=== PATIENT | male | born 1960 | race Two or more races ===

== ENCOUNTER 2024-10-07 20:53 | Inpatient (IN) | payer MEDICARE, OTHER ==
--- NOTE | 2024-10-07 21:13 | ED ---
Male Urogenital HPI - General Source: patient Mode of arrival: ambulatory Limitations: no limitations <Jewell Thakur - Last Filed: 10/07/24 21:12> - General Source: patient, RN notes reviewed, old records reviewed Mode of arrival: ambulatory Limitations: no limitations - History of Present Illness MD Complaint: dysuria, other (hematuria) -: week(s) Location: right flank, left flank, abdomen Severity: moderate Severity scale (1-10): 7 Quality: sharp Consistency: intermittent Improves with: none Worsens with: none Reports: urinary retention, blood in urine <Lance Stephens - Last Filed: 10/14/24 15:35> - General Chief complaint: Urogenital Stated complaint: Blood in Urine Time Seen by Provider: 10/07/24 21:13 - History of Present Illness Initial comments: 64-year-old male presenting chief complaint of blood in his urine. This has been ongoing for the last 10 days. He is having no pain. Has not previously seen urology. (Jewell Thakur) This is a 64-year-old male who is been dealing with blood in his urine for grea ter than a week. Does have outpatient evaluation with urology, patient does have history of high blood pressure not on blood pressure medication as he does not currently follow with primary care. Patient is having severe abdominal pain flank pain kidney pain (Lance Stephens) - Related Data Previous Rx's Medication Instructions Recorded Acetaminophen Tab [Tylenol] 650 mg PO Q6HR PRN tab 10/12/24 Ferrous Sulfate [Feosol] 325 mg PO BID #60 tab 10/12/24 predniSONE [Deltasone] 40 mg PO DAILY #6 tab 10/12/24 Allergies Allergy/AdvReac Type Severity Reaction Status Date / Time No Known Allergies Allergy Verified 10/08/24 08:08 Review of Systems ROS Other: All systems not noted in ROS Statement are negative. <Jewell Thakur - Last Filed: 10/07/24 21:12> ROS Other: All systems not noted in ROS Statement are negative. <Lance Stephens - Last Filed: 10/14/24 15:35> ROS Statement: Those systems with pertinent positive or pertinent negative responses have been documented in the HPI. Past Medical History Past Medical History: Hypertension History of Any Multi-Drug Resistant Organisms: None Reported Past Surgical History: Unable to Obtain Past Psychological History: No Psychological Hx Reported Smoking Status: Never smoker Past Alcohol Use History: Occasional Past Drug Use History: None Reported <Jewell Thakur - Last Filed: 10/07/24 21:12> - Past Family History Father Family Medical History: Cancer Additional Family Medical History / Comment(s): at 71 from mesothelioma Mother Family Medical History: Dementia Additional Family Medical History / Comment(s): around 84-86 years old <Lance Stephens - Last Filed: 10/14/24 15:35> General Exam Limitations: no limitations <Jewell Thakur - Last Filed: 10/07/24 21:12> General appearance: alert, in no apparent distress Head exam: Present: atraumatic, normocephalic, normal inspection Eye exam: Present: normal appearance, PERRL, EOMI. Absent: scleral icterus, conjunctival injection, periorbital swelling ENT exam: Present: normal exam, mucous membranes moist Neck exam: Present: normal inspection. Absent: tenderness, meningismus, lymphadenopathy Respiratory exam: Present: normal lung sounds bilaterally. Absent: respiratory distress, wheezes, rales, rhonchi, stridor Cardiovascular Exam: Present: regular rate, normal rhythm, normal heart sounds. Absent: systolic murmur, diastolic murmur, rubs, gallop, clicks GI/Abdominal exam: Present: soft, normal bowel sounds. Absent: distended, tenderness, guarding, rebound, rigid Extremities exam: Present: normal inspection, full ROM, normal capillary refill. Absent: tenderness, pedal edema, joint swelling, calf tenderness Back exam: Present: normal inspection Neurological exam: Present: alert, oriented X3, CN II-XII intact Psychiatric exam: Present: normal affect, normal mood Skin exam: Present: warm, dry, intact, normal color. Absent: rash <Lance Stephens - Last Filed: 10/14/24 15:35> - General Exam Comments Initial Comments: Visual Physical Exam Vital signs reviewed General: Well-appearing, nontoxic, no acute distress. Head: Normocephalic, atraumatic Eyes: PERRLA, EOMI ENT: Airway patent Chest: Nonlabored breathing Skin: No visual rash, normal skin tone Neuro: Alert and oriented 3 Musculoskeletal: No gross abnormalities (Jewell Thakur) Course <Lance Stephens B - Last Filed: 10/14/24 15:35> Vital Signs 10/07/24 10/07/24 10/08/24 20:54 22:58 01:42 Temperature 97.5 F L 98.6 F Pulse Rate 96 78 79 Respiratory 16 18 18 Rate Blood Pressure 179/100 179/98 179/101 O2 Sat by Pulse 97 97 98 Oximetry 10/08/24 10/08/24 10/08/24 02:45 03:01 04:22 Temperature Pulse Rate 72 76 67 Respiratory 18 18 18 Rate Blood Pressure 159/101 148/89 111/66 O2 Sat by Pulse 97 100 100 Oximetry 10/08/24 10/08/24 10/08/24 05:42 06:18 07:21 Temperature Pulse Rate 65 67 68 Respiratory 16 18 20 Rate Blood Pressure 116/74 153/84 132/81 O2 Sat by Pulse 100 100 99 Oximetry 10/08/24 10/08/24 10/08/24 09:41 10:48 12:00 Temperature Pulse Rate 82 86 85 Respiratory 20 16 20 Rate Blood Pressure 118/74 134/83 130/68 O2 Sat by Pulse 96 99 98 Oximetry 10/08/24 10/08/24 10/08/24 13:49 14:56 17:23 Temperature 97.9 F Pulse Rate 85 75 80 Respiratory 20 19 19 Rate Blood Pressure 130/86 135/86 128/84 O2 Sat by Pulse 98 99 100 Oximetry 10/08/24 10/09/24 10/09/24 22:42 02:00 02:19 Temperature 98.4 F Pulse Rate 84 75 75 Respiratory 20 17 17 Rate Blood Pressure 156/86 119/69 119/69 O2 Sat by Pulse 100 99 99 Oximetry 10/09/24 10/09/24 10/09/24 03:25 06:13 07:20 Temperature 99.0 F Pulse Rate 86 68 78 Respiratory 18 15 16 Rate Blood Pressure 129/81 128/75 118/70 O2 Sat by Pulse 99 99 100 Oximetry 10/09/24 10/09/24 10/09/24 09:16 12:39 14:25 Temperature Pulse Rate 85 76 84 Respiratory 16 18 18 Rate Blood Pressure 129/74 144/91 156/85 O2 Sat by Pulse 100 96 99 Oximetry 10/09/24 15:24 Temperature 98 F Pulse Rate 78 Respiratory 18 Rate Blood Pressure 135/78 O2 Sat by Pulse 98 Oximetry - Reevaluation(s) Reevaluation #1: 10/07/24 22:47 Medical records reviewed (Lance Stephens) Reevaluation #2: 10/07/24 22:47 Patient is having bloody urine with difficulty in urination here in the ER 10/08/24 Nolasco catheter placed here in the ER (Lance Stephens) Reevaluation #3: 10/08/24 01:17 Patient informed of results questions answered (Lance Stephens) Reevaluation #4: Was pt. sent in by a medical professional or institution ([facility] [place], [employer], urgent care, hospital, or long-term...) When possible be specific @ -no Did you speak to anyone other than the patient for history (EMS, parent, family, police, friend...)? What history was obtained from this source @ -no Did you review nursing and triage notes (agree or disagree)? Why? @ -agree Are old charts reviewed (outside hosp., previous admission, EMS record, old EKG, old radiological studies, urgent care reports/EKG's, long-term records)? Report findings @ -yes Differential Diagnosis (chest pain, altered mental status, abdominal pain women, abdominal pain men, vaginal bleeding, weakness, fever, dyspnea, syncope, headache, dizziness, GI bleed, back pain, seizure, CVA, palpatations, mental health, musculoskeletal)? @ -prior EKG interpreted by me (3pts min.). @ -yes X-rays interpreted by me (1pt min.). @ -no CT interpreted by me (1pt min.). @ -Yes positive for significant bladder distention and hydronephrosis U/S interpreted by me (1pt. min.). @ -Yes positive for significant bladder distention and hydronephrosis What testing was considered but not performed or refused? (CT, X-rays, U/S, labs)? Why? @ -none What meds were considered but not given or refused? Why? @ -none Did you discuss the management of the patient with other professionals (professionals i.e. [facility] [place], MA[employer], lab, RT, psych nurse, geriatric social work professor, yarn packer, teacher, seismology technical officer, lead case manager)? Give summary @ -no Was smoking cessation discussed for >3mins.? @ -no Was critical care preformed (if so, how long)? @ -yes31 Were there social determinants of health that impacted care today? How? (Homelessness, low income, unemployed, alcoholism, drug addiction, transportation, low edu. Level, literacy, decrease access to med. care, fci, re hab)? @ -none Was there de-escalation of care discussed even if they declined (Discuss DNR or withdrawal of care, Hospice)? DNR status @ -no What co-morbidities impacted this encounter? (DM, HTN, Smoking, COPD, CAD, Cancer, CVA, ARF, Chemo, Hep., AIDS, mental health diagnosis, sleep apnea, morbid obesity)? @ -none Was patient admitted / discharged? Hospital course, mention meds given and route, prescriptions, significant lab abnormalities, going to OR and other pertinent info. @ - 64 male to ER for evaluation of hematuria with obstructive uropathy, acute kidney injury significant renal failure secondary to obstruction, patient will admit for urology and nephrology to see Admitted Undiagnosed new problem with uncertain prognosis? @ -no Drug Therapy requiring intensive monitoring for toxicity (Heparin, Nitro, Insulin, Cardizem)? @ -no Were any procedures done? @ -no Diagnosis/symptom? @ -Hematuria, obstructive uropathy, acute renal failure Acute, or Chronic, or Acute on Chronic? @ -Acute Uncomplicated (without systemic symptoms) or Complicated (systemic symptoms)? @ -Complicated Side effects of treatment? @ -no Exacerbation, Progression, or Severe Exacerbation? @ -exacerbation Poses a threat to life or bodily function? How? (Chest pain, [place], [place], pneumonia, PE, COPD, DKA, ARF, appy, cholecystitis, CVA, Diverticulitis, Homicidal, Suicidal, threat to staff... and all critical care pts) @ -yes significant abnormal lab testing (Lance Stephens) Reevaluation #5: Differential Abdominal Pain Men: Appendicitis, cholecystitis, diverticulosis, ischemic bowel, pancreatitis, hepatitis, UTI, gastroenteritis, AAA, incarcerated hernia, bowel obstruction, constipation, inflammatory bowel, hepatitis, peptic ulcer disease, splenic inf arction, perforated viscus, testicular torsion, this is not meant to be an all- inclusive list (Lance Stephens) - Consultations Consultation #1: Spoke with nicolette who agrees to admit this patient (Lance Stephens) Medical Decision Making <Jewell Thakur - Last Filed: 10/07/24 21:12> - Lab Data Result diagrams: 10/12/24 05:17 10/12/24 05:17 - Radiology Data Radiology results: report reviewed (CT abd pelvis positive for bladder outlet obstruction sound also concerning for bladder outlet obstruction hydronephrosis), image reviewed <Lance Stephens - Last Filed: 10/14/24 15:35> - Medical Decision Making I performed the quick note portion of this visit, electronically signed Jewell Thakur PA-C (Jewell Thakur) 64 male to ER for evaluation of hematuria with obstructive uropathy, acute ki dney injury significant renal failure secondary to obstruction, patient will admit for urology and nephrology to see (Lance Stephens) - Lab Data Lab Results 10/07/24 10/07/24 10/07/24 Range/Units 21:07 21:24 21:24 WBC 9.2 (3.8-10.6) k/uL RBC 3.20 L (4.30-5.90) m/uL Hgb 10.3 L (13.0-17.5) gm/dL Hct 29.9 L (39.0-53.0) % MCV 93.6 (80.0-100.0) fL MCH 32.2 (25.0-35.0) pg MCHC 34.4 (31.0-37.0) g/dL RDW 13.0 (11.5-15.5) % Plt Count 322 (150-450) k/uL MPV 8.5 Neutrophils % 83 % Lymphocytes % 7 % Monocytes % 8 % Eosinophils % 0 % Basophils % 1 % Neutrophils # 7.6 (1.3-7.7) k/uL Lymphocytes # 0.6 L (1.0-4.8) k/uL Monocytes # 0.7 (0-1.0) k/uL Eosinophils # 0.0 (0-0.7) k/uL Basophils # 0.1 (0-0.2) k/uL Sodium 124 L (137-145) mmol/L Potassium 5.3 H (3.5-5.1) mmol/L Chloride 94 L (98-107) mmol/L Carbon Dioxide 10 L (22-30) mmol/L Anion Gap 20 mmol/L BUN 101 H* (9-20) mg/dL Creatinine 11.08 H* (0.66-1.25) mg/dL Est GFR (CKD-EPI)AfAm 5 (>60 ml/min/1.73 sqM) Est GFR (CKD-EPI)NonAf 4 (>60 ml/min/1.73 sqM) Glucose 130 H (74-99) mg/dL Calcium 9.5 (8.4-10.2) mg/dL Total Bilirubin 0.5 (0.2-1.3) mg/dL AST 19 (17-59) U/L ALT 14 (4-49) U/L Alkaline Phosphatase 72 (38-126) U/L Total Protein 7.5 (6.3-8.2) g/dL Albumin 4.5 (3.5-5.0) g/dL Urine Color Red Urine Appearance Turbid (Clear) Urine pH 7.0 (5.0-8.0) Ur Specific Duncan 1.017 (1.001-1.035) Urine Protein 2+ H (Negative) Urine Glucose (UA) Negative (Negative) Urine Ketones Negative (Negative) Urine Blood Large H (Negative) Urine Nitrite Negative (Negative) Urine Bilirubin 1+ H (Negative) Urine Urobilinogen 3.0 (<2.0) mg/dL Ur Leukocyte Esterase Trace H (Negative) Urine RBC >182 H (0-5) /hpf Urine WBC 98 H (0-5) /hpf Critical Care Time Critical Care Time: Yes Total Critical Care Time: 31 <Lance Stephens - Last Filed: 10/14/24 15:35> Disposition <Jewell Thakur - Last Filed: 10/07/24 21:12> Is patient prescribed a controlled substance at d/c from ED?: No Time of Disposition: 01:00 <Lance Stephens - Last Filed: 10/14/24 15:35> Clinical Impression: Abdominal pain, Hematuria, OLIVER (acute kidney injury), Renal failure, Hypertension, Urinary retention, Unspecified hydronephrosis Disposition: ADMITTED IP TO THIS HOSP Condition: Serious
[2024-10-07 21:38] LABS: Basophils # (A) 0.1 k/uL (0-0.2); Basophils % (A) 1 %; Eosinophils % (A) 0 %; HCT 29.9 % (39.0-53.0); HGB 10.3 gm/dL (13.0-17.5); Lymphocytes # (A) 0.6 k/uL (1.0-4.8); Lymphocytes % (A) 7 %; MCH 32.2 pg (25.0-35.0); MCHC 34.4 g/dL (31.0-37.0); MCV 93.6 fL (80.0-100.0); Mean Platelet Volume 8.5; Monocytes # (A) 0.7 k/uL (0-1.0); Monocytes % (A) 8 %; Neutrophils # (A) 7.6 k/uL (1.3-7.7); Neutrophils % (A) 83 %; Platelet Count 322 k/uL (150-450); WBC 9.2 k/uL (3.8-10.6)
[2024-10-07 21:45] LABS: Appearance,Urine Turbid (Clear); Bilirubin,Urine 1+ (Negative); Blood,Urine Large (Negative); Glucose,Urine (UA) Negative (Negative); Ketones,Urine Negative (Negative); Leukocyte Esterase,Urine Trace (Negative); Nitrite,Urine Negative (Negative); Protein,Urine 2+ (Negative); RBC,Urine >182 /hpf (0-5); WBC,Urine 98 /hpf (0-5)
[2024-10-07 21:51] LABS: Color,Urine Red; Specific Gravity,Urine 1.017 (1.001-1.035)
[2024-10-07 22:10] LABS: ALT 14 U/L (4-49); AST 19 U/L (17-59); African American GFR (CKD) 5 (>60 ml/min/1.73 sqM); Albumin 4.5 g/dL (3.5-5.0); Alkaline Phosphatase 72 U/L (38-126); Anion Gap 20 mmol/L; Calcium 9.5 mg/dL (8.4-10.2); Carbon Dioxide 10 mmol/L (22-30); Chloride 94 mmol/L (98-107); Glucose 130 mg/dL (74-99); Non-African American GFR(CKD) 4 (>60 ml/min/1.73 sqM); Potassium 5.3 mmol/L (3.5-5.1); Sodium 124 mmol/L (137-145); Total Bilirubin 0.5 mg/dL (0.2-1.3); Total Protein 7.5 g/dL (6.3-8.2)
[2024-10-07 22:30] LABS: Blood Urea Nitrogen 101 mg/dL (9-20)
--- NOTE | 2024-10-08 00:55 | US ---
EXAMINATION TYPE: US renals and bladder DATE OF EXAM: 10/07/2024 COMPARISON: CT 10/07/24 CLINICAL INDICATION: Male, 64 years old with history of renal failure; labs showing renal failure TECHNIQUE: Grayscale imaging of the bilateral kidneys and urinary bladder: FINDINGS: EXAM MEASUREMENTS: Right Kidney: 13.0 x 6.5 x 11.0 cm Left Kidney: 14.8 x 7.9 x 5.4 cm limited due to severe hydro and rib shadows Right Kidney: enlarged, severe hydro seen Left Kidney: enlarged, severe hydro seen Bladder: floating echogenic particles seen within. There is a 7.9 x 2.4 x 9.7cm echogenic area with i rregular contour seen within the inferior/ left bladder. There is also a separate 5.2 x 3.1 x 3.9cm h eterogeneous area within the left inferior bladder, ? prominent prostate vs other Bilateral Jets seen: not visualized IMPRESSION: Distended urinary bladder with debris/abnormal urinary contour to the inferior bladder similar to CT findings unclear if this is blood products versus underlying mass. Correlate with urinalysis consider further evaluation and cystoscopy. Given enlarged prostate and bilateral hydronephrosis correlate fo r bladder outlet obstruction in the setting of BPH. 10/08/2024 12:52 AM,10/07/2024 11:33 PM,Katelyn Mcclure, renals and bladder,[id number] [facility], , 10/08/2024 12:53 AM
--- NOTE | 2024-10-08 01:06 | CT ---
EXAMINATION TYPE: CT abdomen pelvis wo con DATE OF EXAM: 10/07/2024 11:18 PM COMPARISON: Ultrasound same day CLINICAL INDICATION: Male, 64 years old with history of pain,hematuria; Hematuria x 10 days no chroni c HX TECHNIQUE: Axial CT abdomen pelvis wo con;Sagittal and coronal reformats were created on a separate workstation. Contrast used: mL of , (none if empty) Oral contrast used: without Oral Contrast (none if empty) CT DLP: 861.7 mGycm, Automated exposure control for dose reduction was used. FINDINGS: LOWER CHEST: Unremarkable ABDOMEN LIVER: Unremarkable GALLBLADDER AND BILE DUCTS: Unremarkable. PANCREAS: Unremarkable. SPLEEN: Unremarkable. ADRENAL GLANDS: Unremarkable. KIDNEYS AND URETERS: Bilateral hydronephrosis moderate to severe. Bilateral hydroureter. PELVIS BLADDER: No distended urinary bladder with debris layering in the dependent portion. Bladder measurin g up to 21 x 14 x 15 cm REPRODUCTIVE: Prostate is enlarged in size measuring 6.4 cm in transverse dimension. ABDOMEN & PELVIS STOMACH AND BOWEL: No evidence of bowel obstruction. Appendix is normal. Scattered colonic diverticul a. Moderate amount of stool throughout colon. PERITONEUM/RETROPERITONEUM: No evidence of pneumoperitoneum or free fluid. VASCULATURE: No evidence of aortic aneurysm. MUSCULOSKELETAL: No acute osseous abnormalities LYMPH NODES: No gross evidence for lymphadenopathy. SOFT TISSUE/ABDOMINAL WALL: Fat-containing left inguinal hernia. Fat-containing umbilical hernia. IMPRESSION: Markedly Distended urinary bladder with bilateral hydronephrosis. Debris within the urinary bladder c ould represent blood products given history. Correlate for chronic bladder outlet obstruction seconda ry to a BPH. Nolasco catheter recommended. Further workup to ensure resolution of blood proximal and to exclude masses recommended. [facility], , 10/08/2024 1:04 AM
[2024-10-08] MEDS ORDERED: ONDANSETRON 4 MG/2 ML VIAL IVP PRN (01:13)
[2024-10-08] MEDS ORDERED: NALOXONE 0.4 MG/ML 1 ML VIAL IV PRN (01:13)
[2024-10-08] MEDS: SODIUM CHLORIDE 0.9% 1,000 ML IV STA ×2 (01:24→02:54)
[2024-10-08] MEDS: SODIUM CHLORIDE 0.9% 500 ML 500 ML IV STA (01:26)
[2024-10-08] MEDS: LABETALOL 5 MG/ML VIAL MDV IVP STA (02:11)
[2024-10-08] MEDS: MORPHINE SULFATE 4 MG/ML SYRINGE IVP STA (02:57)
[2024-10-08] MEDS: SODIUM CHLORIDE 0.9% 1,000 ML IV SCH (02:59)
[2024-10-08] MEDS: DEXTROSE 5% IN WATER 1,000 ML with SODIUM BICARB (1 MEQ/ML) 150 ML IV SCH (03:42)
[2024-10-08] MEDS: PANTOPRAZOLE 40 MG/10 ML VIAL IV SCH (07:33)
[2024-10-08 09:17] LABS: Basophils % (A) 0 %; Eosinophils % (A) 1 %; HCT 25.5 % (39.0-53.0); Lymphocytes # (A) 0.4 k/uL (1.0-4.8); Lymphocytes % (A) 7 %; MCH 31.2 pg (25.0-35.0); MCHC 33.6 g/dL (31.0-37.0); Monocytes # (A) 0.4 k/uL (0-1.0); Monocytes % (A) 7 %; Neutrophils # (A) 4.5 k/uL (1.3-7.7); Neutrophils % (A) 85 %; Platelet Count 247 k/uL (150-450); RBC 2.74 m/uL (4.30-5.90); RDW 13.2 % (11.5-15.5); WBC 5.3 k/uL (3.8-10.6)
[2024-10-08 09:26] LABS: HGB 8.6 gm/dL (13.0-17.5)
[2024-10-08 09:36] LABS: African American GFR (CKD) 6 (>60 ml/min/1.73 sqM); Anion Gap 16 mmol/L; Blood Urea Nitrogen 95 mg/dL (9-20); Calcium 8.5 mg/dL (8.4-10.2); Carbon Dioxide 12 mmol/L (22-30); Chloride 100 mmol/L (98-107); Creatine Kinase 151 U/L (55-170); Glucose 186 mg/dL (74-99); Magnesium 2.4 mg/dL (1.6-2.3); Non-African American GFR(CKD) 5 (>60 ml/min/1.73 sqM); Potassium 4.4 mmol/L (3.5-5.1); Sodium 128 mmol/L (137-145)
--- NOTE | 2024-10-08 09:56 | P.GSCN ---
History of Present Illness Consult date: 10/08/24 Reason for Consult: Bilateral hydronephrosis secondary to urinary retention Requesting physician: Devyn Mcmahan History of present illness: The patient is a 64-year-old white male who presents with a 10-day history of gross hematuria. He has also experienced difficulty voiding, though he is a vague historian. CT scan showed bilateral marked hydroureteronephrosis with bladder distention well above the umbilicus. A Nolasco catheter is now in place. He denies any prior history of UTIs or urolithiasis. Review of Systems - Cardiovascular Reports high blood pressure - Genitourinary Reports as per HPI Past Medical History Past Medical History: Hypertension History of Any Multi-Drug Resistant Organisms: None Reported Past Surgical History: Unable to Obtain Past Psychological History: No Psychological Hx Reported Smoking Status: Never smoker Past Alcohol Use History: Occasional Past Drug Use History: None Reported Medications and Allergies Home Medications Medication Instructions Recorded Confirmed Type No Known Home Medications 10/08/24 10/08/24 History Allergies Allergy/AdvReac Type Severity Reaction Status Date / Time No Known Allergies Allergy Verified 10/08/24 08:08 Surgical - Exam Vital Signs Temp Pulse Resp BP Pulse Ox 97.5 F L 96 16 179/100 97 10/07/24 20:54 10/07/24 20:54 10/07/24 20:54 10/07/24 20:54 10/07/24 20:54 - General well developed, well nourished, no distress - Respiratory normal respiratory effort - Abdomen Abdomen: soft, non tender, no guarding, no rigid, no rebound - Genitourinary normal penis with no external lesions, testicles non-tender - Psychiatric oriented to time, oriented to person, oriented to place, speech is normal, memory intact Results - Labs 10/08/24 08:48 10/08/24 08:48 Abnormal Lab Results - Last 24 Hours (Table) 10/07/24 10/07/24 10/07/24 Range/Units 21:07 21:24 21:24 RBC 3.20 L (4.30-5.90) m/uL Hgb 10.3 L (13.0-17.5) gm/dL Hct 29.9 L (39.0-53.0) % Lymphocytes # 0.6 L (1.0-4.8) k/uL Sodium 124 L (137-145) mmol/L Potassium 5.3 H (3.5-5.1) mmol/L Chloride 94 L (98-107) mmol/L Carbon Dioxide 10 L (22-30) mmol/L BUN 101 H* (9-20) mg/dL Creatinine 11.08 H* (0.66-1.25) mg/dL Glucose 130 H (74-99) mg/dL Urine Protein 2+ H (Negative) Urine Blood Large H (Negative) Urine Bilirubin 1+ H (Negative) Ur Leukocyte Esterase Trace H (Negative) Urine RBC >182 H (0-5) /hpf Urine WBC 98 H (0-5) /hpf Diabetes panel 10/07/24 Range/Units 21:24 Sodium 124 L (137-145) mmol/L Potassium 5.3 H (3.5-5.1) mmol/L Chloride 94 L (98-107) mmol/L Carbon Dioxide 10 L (22-30) mmol/L BUN 101 H* (9-20) mg/dL Creatinine 11.08 H* (0.66-1.25) mg/dL Glucose 130 H (74-99) mg/dL Calcium 9.5 (8.4-10.2) mg/dL AST 19 (17-59) U/L ALT 14 (4-49) U/L Alkaline Phosphatase 72 (38-126) U/L Total Protein 7.5 (6.3-8.2) g/dL Albumin 4.5 (3.5-5.0) g/dL Calcium panel 10/07/24 Range/Units 21:24 Calcium 9.5 (8.4-10.2) mg/dL Albumin 4.5 (3.5-5.0) g/dL Pituitary panel 10/07/24 Range/Units 21:24 Sodium 124 L (137-145) mmol/L Potassium 5.3 H (3.5-5.1) mmol/L Chloride 94 L (98-107) mmol/L Carbon Dioxide 10 L (22-30) mmol/L BUN 101 H* (9-20) mg/dL Creatinine 11.08 H* (0.66-1.25) mg/dL Glucose 130 H (74-99) mg/dL Calcium 9.5 (8.4-10.2) mg/dL Adrenal panel 10/07/24 Range/Units 21:24 Sodium 124 L (137-145) mmol/L Potassium 5.3 H (3.5-5.1) mmol/L Chloride 94 L (98-107) mmol/L Carbon Dioxide 10 L (22-30) mmol/L BUN 101 H* (9-20) mg/dL Creatinine 11.08 H* (0.66-1.25) mg/dL Glucose 130 H (74-99) mg/dL Calcium 9.5 (8.4-10.2) mg/dL Total Bilirubin 0.5 (0.2-1.3) mg/dL AST 19 (17-59) U/L ALT 14 (4-49) U/L Alkaline Phosphatase 72 (38-126) U/L Total Protein 7.5 (6.3-8.2) g/dL Albumin 4.5 (3.5-5.0) g/dL - Imaging CT scan - abdomen: report reviewed, image reviewed Assessment and Plan (1) Urinary retention Current Visit: Yes Status: Acute Code(s): R33.9 - RETENTION OF URINE, UNSPECIFIED SNOMED Code(s): 574919385 (2) Unspecified hydronephrosis Current Visit: Yes Status: Acute Code(s): N13.30 - UNSPECIFIED H YDRONEPHROSIS SNOMED Code(s): 95733038 Plan: Continue Nolasco catheter drainage. Irrigate Nolasco as needed. Fluid management is critical, being mindful of the risk of postobstructive diuresis. Given the degree of bladder distention, the patient was advised that the catheter will need to remain in place for several weeks and that he will require urodynamic testing and cystoscopy as an outpatient. Time with Patient: Greater than 30
--- NOTE | 2024-10-08 12:02 | P.HPIM ---
History of Present Illness H&P Date: 10/08/24 History of present illness; 64-year-old man with PMH of hypertension presents to the emergency department after dealing with gross hematuria for 10 days. Additionally, he notes some discomfort and difficulty with voiding. He notes when he first noticed discoloration of his urine he began taking some Ceftin at home, but stopped after a couple of days. He is a vague historian, however endorses history of hypertension for which he used to take losartan, however states he has not taken in "a while". He does not endorse taking any other home medications, or any other past medical history. He states he has never smoked. Does drink regularly, 12 vodka tonics daily per the patient. Labratory review: -WBCs 9.2, hemoglobin 10.3, hematocrit 29.9, platelet 322; sodium 124, potassium 5.3, chloride 94, bicarb 10, BUN 101, creatinine 11.08 -UA: 2+ protein, large amount of blood, 1+ bilirubin, trace leukocyte esterase, > 182 urine RBCs, 98 urine WBCs Imaging: -Renal/bladder ultrasound showed distended urinary bladder with debris/abnormal urinary contour to the inferior bladder -CT abdomen/pelvis shows markedly distended urinary bladder with bilateral hydronephrosis; debris within the urinary bladder which could represent blood products. Vitals: -On arrival: Blood pressure 179/100, heart rate 96, respiratory rate 16, SpO2 97% on room air -Currently: Blood pressure 132/81, heart rate 68, respiratory rate 20, SpO2 99% room air Patient admitted to internal medicine service REVIEW OF SYSTEMS: Pertinent positives and negatives noted in HPI. The rest of the 14-point review of systems is negative. Physical Exam: General: nontoxic, no distress, appears at stated age Derm: warm, dry, intact Head: atraumatic, normocephalic, symmetric Eyes: EOMI, anicteric sclera Mouth: no lip lesion, mucus membranes moist Cardiovascular: S1 S2 reg, no murmur, rubs, or gallops Lungs: CTA bilateral, no rales, no accessory muscle use Abdominal: soft, non-tender to palpataion, no appreciable organomegaly; ventral hernia noted Extremities: no gross muscle atrophy, no edema, no contractures Neuro: Alert, Oriented, CNII-XII grossly intact, gait normal Psych: well appearing, appropriate affect Assessment and plan 59-year-old man with PMH of hypertension presents to the emergency department after dealing with gross hematuria for 10 days, some discomfort and difficulty with voiding and worsening kidney function. #Acute kidney injury #Gross hematuria #Urinary retention #Hydronephrosis #Hyponatremia, improving #Hyperkalemia, resolved #Anion gap metabolic acidosis -CT abdomen/pelvis showed markedly distended urinary bladder and bilateral hydronephrosis -Nolasco catheter in place -Continue on D5W with sodium bicarb at 100 cc/h -Urology note read and reviewed -Nephrology consult #Normocytic anemia -Hemoglobin 8.6 this morning -Continue monitor CBC -Hemoglobin <7 transfuse GI prophylaxis: DVT prophylaxis: The patient is admitted with an anticipated more than than 2 midnight stay for evaluation of CODE STATUS: Full code Discussed with: Patient Anticipated discharge place: Pending clinical course Dictation was produced using [employer] dictation software. please excuse any grammatical, word or spelling errors. I have seen and evaluated the patient today. Discussed with the resident and agree with the residents finding and plan as documented in the resident's note. Changes highlighted in blue font. Past Medical History Past Medical History: Hypertension History of Any Multi-Drug Resistant Organisms: None Reported Past Surgical History: Unable to Obtain Past Psychological History: No Psychological Hx Reported Smoking Status: Never smoker Past Alcohol Use History: Occasional Past Drug Use History: None Reported Medications and Allergies Home Medications Medication Instructions Recorded Confirmed Type No Known Home Medications 10/08/24 10/08/24 History Allergies Allergy/AdvReac Type Severity Reaction Status Date / Time No Known Allergies Allergy Verified 10/08/24 08:08 Physical Exam Vitals: Vital Signs Temp Pulse Resp BP Pulse Ox 10/08/24 07:21 68 20 132/81 99 10/08/24 06:18 67 18 153/84 100 10/08/24 05:42 65 16 116/74 100 10/08/24 04:22 67 18 111/66 100 10/08/24 03:01 76 18 148/89 100 10/08/24 02:45 72 18 159/101 97 10/08/24 01:42 98.6 F 79 18 179/101 98 10/07/24 22:58 78 18 179/98 97 10/07/24 20:54 97.5 F L 96 16 179/100 97 Intake and Output 10/07/24 10/08/24 10/08/24 22:59 06:59 14:59 Output Total 2980 2500 Balance -2980 -2500 Output: Urine 2980 2500 Uretheral (Nolasco) 2980 Other: Voiding Method Toilet Weight 98.883 kg Results CBC & Chem 7: 10/08/24 08:48 10/08/24 08:48 Labs: Abnormal Lab Results - Last 24 Hours (Table) 10/07/24 10/07/24 10/07/24 Range/Units 21:07 21:24 21:24 RBC 3.20 L (4.30-5.90) m/uL Hgb 10.3 L (13.0-17.5) gm/dL Hct 29.9 L (39.0-53.0) % Lymphocytes # 0.6 L (1.0-4.8) k/uL Sodium 124 L (137-145) mmol/L Potassium 5.3 H (3.5-5.1) mmol/L Chloride 94 L (98-107) mmol/L Carbon Dioxide 10 L (22-30) mmol/L BUN 101 H* (9-20) mg/dL Creatinine 11.08 H* (0.66-1.25) mg/dL Glucose 130 H (74-99) mg/dL Urine Protein 2+ H (Negative) Urine Blood Large H (Negative) Urine Bilirubin 1+ H (Negative) Ur Leukocyte Esterase Trace H (Negative) Urine RBC >182 H (0-5) /hpf Urine WBC 98 H (0-5) /hpf
--- NOTE | 2024-10-08 15:12 | P.NPCON ---
History of Present Illness - Reason for Consult Consult date: 10/08/24 - History of Present Illness Patient is 64-year-old male history of hypertension who presents for blood in urine. Blood began 10 days ago. He had progressive pain while urinating since his symptoms began. He continues to have gross blood in urine with occasional weaker stream which he feels is due to clotting. He denies traumatic injury, history of kidney or bladder dysfunction or history of weak stream, UTI, and kid argelia stones. He denies history of malignancy. He states he uses NSAIDs once for pain 1 week ago. He does endorse taking Ceftin for his suspected UTI. He denies alcohol use, and history of smoking. He states he is eating and drinking well. Denies nausea or vomiting. Patient states that he believes he has had weak kidney function for some time. He states that he has not seen any physician for many years now. Serum creatinine initially elevated at 11, today improved to 10. Previous creatinine 1.9 in September 2021. Maintained on IV fluids Initial sodium 124, improved today to 128. Past Medical History Past Medical History: Hypertension History of Any Multi-Drug Resistant Organisms: None Reported Past Surgical History: Unable to Obtain Past Psychological History: No Psychological Hx Reported Smoking Status: Never smoker Past Alcohol Use History: Occasional Past Drug Use History: None Reported Medications and Allergies Home Medications Medication Instructions Recorded Confirmed Type No Known Home Medications 10/08/24 10/08/24 History Allergies Allergy/AdvReac Type Severity Reaction Status Date / Time No Known Allergies Allergy Verified 10/08/24 08:08 Physical Exam Vitals: Vital Signs Temp Pulse Resp BP Pulse Ox 10/08/24 09:41 82 20 118/74 96 10/08/24 07:21 68 20 132/81 99 10/08/24 06:18 67 18 153/84 100 10/08/24 05:42 65 16 116/74 100 10/08/24 04:22 67 18 111/66 100 10/08/24 03:01 76 18 148/89 100 10/08/24 02:45 72 18 159/101 97 10/08/24 01:42 98.6 F 79 18 179/101 98 10/07/24 22:58 78 18 179/98 97 10/07/24 20:54 97.5 F L 96 16 179/100 97 Intake and Output 10/07/24 10/08/24 10/08/24 22:59 06:59 14:59 Output Total 2980 2500 Balance -2980 -2500 Output: Urine 2980 2500 Uretheral (Nolasco) 2980 Other: Voiding Method Toilet Weight 98.883 kg Patient is awake, comfortable, no acute distress. Obese. Rah red urine in Nolasco bag. 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 Results - Lab Results Most recent lab results Calcium 8.5 mg/dL (8.4-10.2) 10/08/24 08:48 Magnesium 2.4 mg/dL (1.6-2.3) H 10/08/24 08:48 10/08/24 08:48 10/08/24 08:48 Assessment and Plan Assessment: 1. OLIVER due to postrenal obstruction, Renal ultrasound with bilateral hydronephrosis and enlarged prostate. Creatinine on admission 11. Last known creatinine 1.9 in 2021. Baseline unclear. Will continue IV fluids. UA with findings 2+ protein, large blood, RBCs > 182. Nolasco catheter placed. IV fluids. Urology following 2. Hematuria secondary to obstructive uropathy with possible UTI 3. Bilateral hydronephrosis, moderate to severe with markedly distended urinary bladder noted on ultrasound and AP CT 4. Pyuria rule out UTI, urine culture ordered 5. Hyponatremia, hypovolemic, improving with IV fluids 6. Anion gap metabolic acidosis, secondary to kidney injury, maintain on bicarb drip, improving 7. Anemia, rule out iron deficiency, ferritin and iron panel ordered Plan: Continue with bicarb drip Nolasco catheter in place Urine culture pending Avoid nephrotoxic agents Iron profile pending Monitor CMP in a.m. No acute indication for hemodialysis at this time. Thank you for the consultation. We will continue to follow the patient with you during his hospitalization. Patient is seen and examined. Agree with resident's findings, assessment and plan.
[2024-10-08 19:52] LABS: % Iron Saturation 18.06 (15.00-50.00)
[2024-10-09] MEDS: ACETAMINOPHEN TAB 325 MG TAB PO PRN (03:50)
[2024-10-09 07:38] LABS: Basophils % (A) 0 %; Eosinophils # (A) 0.1 k/uL (0-0.7); Eosinophils % (A) 2 %; HCT 23.2 % (39.0-53.0); Lymphocytes # (A) 0.6 k/uL (1.0-4.8); Lymphocytes % (A) 9 %; MCH 31.9 pg (25.0-35.0); MCHC 34.4 g/dL (31.0-37.0); MCV 92.8 fL (80.0-100.0); Mean Platelet Volume 8.9; Monocytes # (A) 0.7 k/uL (0-1.0); Monocytes % (A) 10 %; Neutrophils # (A) 5.5 k/uL (1.3-7.7); Neutrophils % (A) 77 %; Platelet Count 218 k/uL (150-450); RDW 12.7 % (11.5-15.5)
[2024-10-09 07:55] LABS: ALT 10 U/L (4-49); AST 13 U/L (17-59); African American GFR (CKD) 6 (>60 ml/min/1.73 sqM); Albumin 3.1 g/dL (3.5-5.0); Alkaline Phosphatase 43 U/L (38-126); Anion Gap 10 mmol/L; Blood Urea Nitrogen 82 mg/dL (9-20); Calcium 8.5 mg/dL (8.4-10.2); Carbon Dioxide 23 mmol/L (22-30); Chloride 100 mmol/L (98-107); Glucose 128 mg/dL (74-99); Magnesium 2.2 mg/dL (1.6-2.3); Non-African American GFR(CKD) 5 (>60 ml/min/1.73 sqM); Phosphorus 6.5 mg/dL (2.5-4.5); Potassium 4.1 mmol/L (3.5-5.1); Sodium 133 mmol/L (137-145); Total Bilirubin 0.4 mg/dL (0.2-1.3); Total Protein 5.5 g/dL (6.3-8.2)
[2024-10-09] MEDS: SODIUM CHLORIDE 0.9% 1,000 ML IV SCH (09:08)
--- NOTE | 2024-10-09 09:23 | P.PN ---
Subjective Progress Note Date: 10/09/24 Patient seen for follow-up of OLIVER and hematuria. He continues to have hematuria, Nolasco catheter remains in place. Today's creatinine improved to 9.0. Today improved sodium 133. Switch from D5W with sodium bicarb to IV normal saline. Patient is eating and drinking well. Urology is following patient. Objective - Vital Signs Vital signs: Vital Signs Temp 99.0 F 10/09/24 03:25 Pulse 78 10/09/24 07:20 Resp 16 10/09/24 07:20 BP 118/70 10/09/24 07:20 Pulse Ox 100 10/09/24 07:20 FiO2 Intake & Output 10/08/24 10/09/24 10/09/24 18:59 06:59 18:59 Intake Total 480 Output Total 4500 2625 Balance -4500 -2145 Intake: Oral 480 Output: Urine 4500 2625 Other: Voiding Method Indwelling Catheter - Exam Patient is awake, comfortable, no acute distress. Obese. Rah red urine in Nolasco bag. Examination of the heart S1 and S2 Examination of the lungs bilateral breath sounds are heard, no basal crackles Examination of the Abdomen is soft, hernia, nontender Examination of lower extremities shows no edema [employer]ANDSCAPE SPECIALIST exam is grossly intact. - Labs CBC & Chem 7: 10/09/24 07:17 10/09/24 07:17 Labs: Abnormal Lab Results - Last 24 Hours (Table) 10/08/24 10/08/24 10/08/24 Range/Units 08:48 08:48 08:48 RBC 2.74 L (4.30-5.90) m/uL Hgb 8.6 L D (13.0-17.5) gm/dL Hct 25.5 L (39.0-53.0) % Lymphocytes # 0.4 L (1.0-4.8) k/uL Sodium 128 L (137-145) mmol/L Carbon Dioxide 12 L (22-30) mmol/L BUN 95 H (9-20) mg/dL Creatinine 10.10 H* (0.66-1.25) mg/dL Glucose 186 H (74-99) mg/dL Phosphorus (2.5-4.5) mg/dL Magnesium 2.4 H (1.6-2.3) mg/dL Iron 41 L (65-175) UG/DL TIBC 227 L (228-460) UG/DL Transferrin 162.0 L (204.0-354.0) mg/dL Ferritin 335.0 H (22.0-322.0) ng/mL AST (17-59) U/L Total Protein (6.3-8.2) g/dL Albumin (3.5-5.0) g/dL 10/09/24 10/09/24 Range/Units 07:17 07:17 RBC 2.50 L (4.30-5.90) m/uL Hgb 8.0 L (13.0-17.5) gm/dL Hct 23.2 L (39.0-53.0) % Lymphocytes # 0.6 L (1.0-4.8) k/uL Sodium 133 L (137-145) mmol/L Carbon Dioxide (22-30) mmol/L BUN 82 H (9-20) mg/dL Creatinine 9.06 H* (0.66-1.25) mg/dL Glucose 128 H (74-99) mg/dL Phosphorus 6.5 H (2.5-4.5) mg/dL Magnesium (1.6-2.3) mg/dL Iron (65-175) UG/DL TIBC (228-460) UG/DL Transferrin (204.0-354.0) mg/dL Ferritin (22.0-322.0) ng/mL AST 13 L (17-59) U/L Total Protein 5.5 L (6.3-8.2) g/dL Albumin 3.1 L (3.5-5.0) g/dL Assessment and Plan Assessment: 1. OLIVER due to postrenal obstruction, Renal ultrasound with bilateral hydronephrosis and enlarged prostate. Creatinine on admission 11. Today creatinine improved to 9.0, last known creatinine 1.9 in 2021. Baseline unclear. Will continue IV fluids. UA with findings 2+ protein, large blood, RBCs > 182. Nolasco catheter placed. IV fluids. Urology following 2. Hematuria secondary to obstructive uropathy with possible UTI 3. Bilateral hydronephrosis, moderate to severe with markedly distended urinary bladder noted on ultrasound and CT AP 4. Pyuria rule out UTI, urine culture ordered 5. Hyponatremia, hypovolemic, improving with IV fluids 6. Anion gap metabolic acidosis, secondary to kidney injury, improved 7. Anemia, rule out iron deficiency, ferritin elevated 335, percent saturation is WNL, iron is low 41, Aranesp and Ferrlecit given Plan: Begin IV normal saline Begin Ferrlecit and Aranesp Nolasco catheter in place Urine culture pending Avoid nephrotoxic agents Monitor CMP in a.m. No acute indication for hemodialysis at this time. We will continue to follow this patient during his hospitalization
--- NOTE | 2024-10-09 12:26 | P.PN ---
Subjective Progress Note Date: 10/09/24 64-year-old man with PMH of hypertension presents to the emergency department after dealing with gross hematuria for 10 days. Additionally, he notes some discomfort and difficulty with voiding. He notes when he first noticed discoloration of his urine he began taking some Ceftin at home, but stopped afte r a couple of days. He is a vague historian, however endorses history of hypertension for which he used to take losartan, however states he has not taken in "a while". He does not endorse taking any other home medications, or any other past medical history. He states he has never smoked. Does drink regularly, 12 vodka tonics daily per the patient. 10/09/24 - Patient seen and examined at bedside this morning, remaining in the ED. overnight he was noted to have some increasing back pain, which she believes is secondary to remaining in the ED on the stretcher. He was given Tylenol at that time. He remains on sodium bicarb at 100 cc/h. Urology recommendation to continue Nolasco catheter drainage, irrigation of the Nolasco as needed. Will likely require catheter for several weeks and will require urodynamic testing and cystoscopy as an outpatient. He currently has no acute complaints at this time. He was seen resting comfortably in his chair. Patient continues to have hematuria, with Nolasco catheter remaining in place. Today's creatinine improved to 9.06, with sodium improving to 133. D5W with sodium bicarb was transitioned to normal saline 100 cc/h and he was given Ferrlecit. He has no acute complaints at this time. REVIEW OF SYSTEMS: Pertinent positives and negatives noted in HPI. Physical Exam: General: nontoxic, no distress, appears at stated age Derm: warm, dry, intact Head: atraumatic, normocephalic, symmetric Eyes: EOMI, anicteric sclera Mouth: no lip lesion, mucus membranes moist Cardiovascular: S1 S2 reg, no murmur, rubs, or gallops Lungs: CTA bilateral, no rales, no accessory muscle use Abdominal: soft, non-tender to palpataion, no appreciable organomegaly; ventral hernia noted Extremities: no gross muscle atrophy, no edema, no contractures Neuro: Alert, Oriented, CNII-XII grossly intact, gait normal Psych: well appearing, appropriate affect Data Received Today: Labs: WBC 7.0, hemoglobin 8.0, hematocrit 23.2, platelet 218; sodium 133, potassium 4.1, bicarb 23, BUN 82, creatinine 9.06, phosphorus 6.5, calcium 8.5, magnesium 2.2 Imagining: No new imaging today Assessment and plan 59-year-old man with PMH of hypertension presents to the emergency department after dealing with gross hematuria for 10 days, some discomfort and difficulty with voiding and worsening kidney function. #Acute kidney injury #Gross hematuria #Urinary retention #Hydronephrosis #Hyponatremia, improving #Hyperkalemia, resolved #Anion gap metabolic acidosis, resolved -Nolasco catheter remains in place -Continues with hematuria today (10/09/2024) -Discontinued bicarb, started on normal saline 100 cc/h -Urology note read and reviewed -Nephrology consult #Normocytic anemia, possibly dilutional -Hemoglobin 8.0 this morning -Continue monitor CBC -Hemoglobin <7 transfuse -Iron 41, TIBC 227, saturation 18.06, transferrin 162, ferritin 335 -Given Ferrlecit, 1 dose DVT ppx: GI PPx: Code status: Full code F: Normal saline 100 cc/h E: Replete as needed N: Renal A: Ambulatory Anticipated discharge place: Pending clinical course Anticipated discharge time: Pending clinical course Dictation was produced using [employer] dictation software. please excuse any grammatical, word or spelling errors. I have seen and evaluated the patient today. Discussed with the resident and agree with the residents finding and plan as documented in the resident's note. Changes highlighted in blue font. Objective - Vital Signs Vital signs: Vital Signs Temp 99.0 F 10/09/24 03:25 Pulse 68 10/09/24 06:13 Resp 15 10/09/24 06:13 BP 128/75 10/09/24 06:13 Pulse Ox 99 10/09/24 06:13 FiO2 Intake & Output 10/08/24 10/09/24 10/09/24 18:59 06:59 18:59 Intake Total 480 Output Total 4500 2625 Balance -4500 -2145 Intake: Oral 480 Output: Urine 4500 2625 Other: Voiding Method Indwelling Catheter - Labs CBC & Chem 7: 10/09/24 07:17 10/09/24 07:17 Labs: Abnormal Lab Results - Last 24 Hours (Table) 10/08/24 10/08/24 10/08/24 Range/Units 08:48 08:48 08:48 RBC 2.74 L (4.30-5.90) m/uL Hgb 8.6 L D (13.0-17.5) gm/dL Hct 25.5 L (39.0-53.0) % Lymphocytes # 0.4 L (1.0-4.8) k/uL Sodium 128 L (137-145) mmol/L Carbon Dioxide 12 L (22-30) mmol/L BUN 95 H (9-20) mg/dL Creatinine 10.10 H* (0.66-1.25) mg/dL Glucose 186 H (74-99) mg/dL Magnesium 2.4 H (1.6-2.3) mg/dL Iron 41 L (65-175) UG/DL TIBC 227 L (228-460) UG/DL Transferrin 162.0 L (204.0-354.0) mg/dL Ferritin 335.0 H (22.0-322.0) ng/mL
[2024-10-09] MEDS: SODIUM FERRIC GLUCONAT-SUCROSE 125 MG in SODIUM CHLORIDE 0.9% 100 ML IVPB ONE (12:43)
[2024-10-09] MEDS: DARBEPOETIN ALFA 40 MCG/0.4 ML SYRINGE SQ SCH (12:45)
--- NOTE | 2024-10-09 16:19 | P.PN ---
Subjective Progress Note Date: 10/09/24 Principal diagnosis: Hydronephrosis secondary to urinary retention The patient was admitted with renal failure and found to have bilateral hydronephrosis due to urinary retention. A Nolasco catheter was placed, and the urine is clearing. There are serum creatinine level is gradually decreasing. He has no specific complaints at this time. Objective - Vital Signs Vital signs: Vital Signs Temp 99.0 F 10/09/24 03:25 Pulse 76 10/09/24 12:39 Resp 18 10/09/24 12:39 BP 144/91 10/09/24 12:39 Pulse Ox 96 10/09/24 12:39 FiO2 Intake & Output 10/08/24 10/09/24 10/09/24 18:59 06:59 18:59 Intake Total 480 Output Total 4500 2625 Balance -4500 -2145 Intake: Oral 480 Output: Urine 4500 2625 Other: Voiding Method Indwelling Catheter - Constitutional General appearance: Present: average body habitus, cooperative, no acute distress - Genitourinary Genitourinary Comment(s): Digital Rectal Examination: Normal anal sphincter tone, no rectal masses. The prostate is approximately 50 g in size, smooth in consistency. - Psychiatric Psychiatric: Present: A&O x's 3 - Labs CBC & Chem 7: 10/09/24 07:17 10/09/24 07:17 Labs: Abnormal Lab Results - Last 24 Hours (Table) 10/08/24 10/09/24 10/09/24 Range/Units 08:48 07:17 07:17 RBC 2.50 L (4.30-5.90) m/uL Hgb 8.0 L (13.0-17.5) gm/dL Hct 23.2 L (39.0-53.0) % Lymphocytes # 0.6 L (1.0-4.8) k/uL Sodium 133 L (137-145) mmol/L BUN 82 H (9-20) mg/dL Creatinine 9.06 H* (0.66-1.25) mg/dL Glucose 128 H (74-99) mg/dL Phosphorus 6.5 H (2.5-4.5) mg/dL Iron 41 L (65-175) UG/DL TIBC 227 L (228-460) UG/DL Transferrin 162.0 L (204.0-354.0) mg/dL Ferritin 335.0 H (22.0-322.0) ng/mL AST 13 L (17-59) U/L Total Protein 5.5 L (6.3-8.2) g/dL Albumin 3.1 L (3.5-5.0) g/dL Assessment and Plan (1) Urinary retention Current Visit: Yes Status: Acute Code(s): R33.9 - RETENTION OF URINE, UNSPECIFIED SNOMED Code(s): 776743108 (2) Unspecified hydronephrosis Current Visit: Yes Status: Acute Code(s): N13.30 - UNSPECIFIED HYDRONEPHROSIS SNOMED Code(s): 04839811 Plan: -Continue Nolasco catheter drainage. -Continue to monitor renal function.
[2024-10-10 05:12] LABS: Basophils % (A) 0 %; Eosinophils # (A) 0.2 k/uL (0-0.7); Eosinophils % (A) 3 %; HCT 22.1 % (39.0-53.0); HGB 7.6 gm/dL (13.0-17.5); Lymphocytes # (A) 0.5 k/uL (1.0-4.8); Lymphocytes % (A) 8 %; MCH 32.4 pg (25.0-35.0); MCHC 34.5 g/dL (31.0-37.0); Mean Platelet Volume 8.1; Monocytes # (A) 0.6 k/uL (0-1.0); Monocytes % (A) 10 %; Neutrophils % (A) 78 %; Platelet Count 228 k/uL (150-450); RBC 2.35 m/uL (4.30-5.90); WBC 6.5 k/uL (3.8-10.6)
[2024-10-10 05:33] LABS: African American GFR (CKD) 8 (>60 ml/min/1.73 sqM); Anion Gap 9 mmol/L; Blood Urea Nitrogen 68 mg/dL (9-20); Calcium 8.3 mg/dL (8.4-10.2); Carbon Dioxide 21 mmol/L (22-30); Chloride 103 mmol/L (98-107); Glucose 106 mg/dL (74-99); Non-African American GFR(CKD) 7 (>60 ml/min/1.73 sqM); Potassium 3.9 mmol/L (3.5-5.1); Sodium 133 mmol/L (137-145)
--- NOTE | 2024-10-10 11:12 | P.PN ---
Subjective Progress Note Date: 10/10/24 64-year-old man with PMH of hypertension presents to the emergency department after dealing with gross hematuria for 10 days. Additionally, he notes some discomfort and difficulty with voiding. He notes when he first noticed discoloration of his urine he began taking some Ceftin at home, but stopped afte r a couple of days. He is a vague historian, however endorses history of hypertension for which he used to take losartan, however states he has not taken in "a while". He does not endorse taking any other home medications, or any other past medical history. He states he has never smoked. Does drink regularly, 12 vodka tonics daily per the patient. 10/09/24 - Patient seen and examined at bedside this morning, remaining in the ED. overnight he was noted to have some increasing back pain, which she believes is secondary to remaining in the ED on the stretcher. He was given Tylenol at that time. He remains on sodium bicarb at 100 cc/h. Urology recommendation to continue Nolasco catheter drainage, irrigation of the Nolasco as needed. Will likely require catheter for several weeks and will require urodynamic testing and cystoscopy as an outpatient. He currently has no acute complaints at this time. He was seen resting comfortably in his chair. Patient continues to have hematuria, with Nolasco catheter remaining in place. Today's creatinine improved to 9.06, with sodium improving to 133. D5W with sodium bicarb was transitioned to normal saline 100 cc/h and he was given Ferrlecit. He has no acute complaints at this time. 10/10/24 - Patient seen and examined at bedside this morning, up on the 5th floor. He was resting comfortably in his bed. Kidney function continues to show signs of improvement, this morning creatinine 7.64. He does continue have hematuria. Will continue on normal saline 100 cc/h, to continue drainage of the Nolasco catheter. Will continue to monitor his renal function. Only notable concern for the patient is some increased swelling and discomfort of his left foot/ankle. Follow-up imaging studies will be ordered, as well as uric acid to rule out any possibility of gout. REVIEW OF SYSTEMS: Pertinent positives and negatives noted in HPI. Physical Exam: General: nontoxic, no distress, appears at stated age Derm: warm, dry, intact Head: atraumatic, normocephalic, symmetric Eyes: EOMI, anicteric sclera Mouth: no lip lesion, mucus membranes moist Cardiovascular: S1 S2 reg, no murmur, rubs, or gallops Lungs: CTA bilateral, no rales, no accessory muscle use Abdominal: soft, non-tender to palpataion, no appreciable organomegaly; ventral hernia noted Extremities: Edema and some tenderness to palpation of the left ankle/foot Neuro: Alert, Oriented, CNII-XII grossly intact, gait normal Psych: well appearing, appropriate affect Data Received Today: Labs: CBC and BMP significant for EBC 2.35, Hg 7.6, Hct 22.1, Na 133, bicarb 21, BUN 68, Cr 7.64, glu 106, Ca 8.3. Imagining: Left foot/ankle x-ray and left lower extremity duplex venous ultrasound ordered, currently pending in regards to patient's left ankle/foot pain Assessment and plan 59-year-old man with PMH of hypertension presents to the emergency department after dealing with gross hematuria for 10 days, some discomfort and difficulty with voiding and worsening kidney function. #Acute kidney injury, improving #Gross hematuria #Urinary retention #Hydronephrosis #Hyponatremia, improving #Hyperkalemia, resolved #Anion gap metabolic acidosis, resolved -Nolasco catheter remains in place -Continues with hematuria today (10/09/2024) -Continue on normal saline 100 cc/h -Urology note read and reviewed -Nephrology consult #Normocytic anemia, possibly dilutional -Hemoglobin 7.6 this morning -Continue monitor CBC -Hemoglobin <7 transfuse -Iron 41, TIBC 227, saturation 18.06, transferrin 162, ferritin 335 -Initiated on Aranesp 40 mcg subcu q. 7 days -Given Ferrlecit, 1 dose #New onset left foot/ankle swelling and pain -Uric acid ordered, currently pending -Left foot/ankle x-ray ordered, currently pending -Left lower extremity duplex venous ultrasound ordered, currently pending DVT ppx: None GI PPx: None Code status: Full code F: Normal saline 100 cc/h E: Replete as needed N: Renal diet A: Ambulatory Anticipated discharge place: Home Anticipated discharge time: Pending clinical course Dictation was produced using [employer] dictation software. please excuse any grammatical, word or spelling errors. I have seen and evaluated the patient today. Discussed with the resident and agree with the residents finding and plan as documented in the resident's note. Changes highlighted in blue font. Objective - Vital Signs Vital signs: Vital Signs Temp 98.6 F 10/10/24 08:00 Pulse 98 10/10/24 08:00 Resp 20 10/10/24 08:00 BP 147/78 10/10/24 08:00 Pulse Ox 98 10/10/24 08:00 FiO2 Intake & Output 10/09/24 10/10/24 10/10/24 18:59 06:59 18:59 Intake Total 540 1620 Output Total 1150 1700 525 Balance -610 -80 -525 Weight 94.5 kg Intake: Oral 540 1620 Output: Urine 1150 1700 525 Other: Voiding Method Indwelling Catheter Indwelling Catheter - Labs CBC & Chem 7: 10/10/24 04:53 10/10/24 04:53 Labs: Abnormal Lab Results - Last 24 Hours (Table) 10/10/24 10/10/24 Range/Units 04:53 04:53 RBC 2.35 L (4.30-5.90) m/uL Hgb 7.6 L (13.0-17.5) gm/dL Hct 22.1 L (39.0-53.0) % Lymphocytes # 0.5 L (1.0-4.8) k/uL Sodium 133 L (137-145) mmol/L Carbon Dioxide 21 L (22-30) mmol/L BUN 68 H (9-20) mg/dL Creatinine 7.64 H* (0.66-1.25) mg/dL Glucose 106 H (74-99) mg/dL Calcium 8.3 L (8.4-10.2) mg/dL
--- NOTE | 2024-10-10 11:53 | US ---
EXAMINATION TYPE: US venous doppler duplex LE LT DATE OF EXAM: 10/10/2024 11:09 AM COMPARISON: NONE CLINICAL INDICATION: Male, 64 years old with history of Left foot/ankle swelling discomfort; , Pain TECHNIQUE: The lower extremity deep venous system is examined utilizing real time linear array sonog yanni with graded compression, color doppler sonography, and spectral doppler. SIDE PERFORMED: Left FINDINGS: VESSELS IMAGED: Common Femoral Vein Deep Femoral Vein Greater Saphenous Vein * Femoral Vein Popliteal Vein Small Saphenous Vein * Proximal Calf Veins (* superficial vessels) Left Leg: Negative for DVT, Color Doppler imaging shows patency of the vessels. Spectral waveforms a re within normal limits. Slightly limited Lt calf vs due to edema IMPRESSION: No visualized deep vein thrombosis of the left lower extremity. [facility], , 10/10/2024 11:51 AM
--- NOTE | 2024-10-10 12:17 | P.PN ---
Subjective Patient is seen for follow-up for acute kidney injury. Mostly obstructive uropathy Slowly improving with Nolasco catheter. Serum creatinine has decreased to 7.6 mg/dL. Complaining of pain in the left big toe and the front of the foot. It appears quite swollen and tender. No previous history of gout. No history of trauma. Objective - Vital Signs Vital signs: Vital Signs Temp 98.6 F 10/10/24 08:00 Pulse 98 10/10/24 08:00 Resp 20 10/10/24 08:00 BP 147/78 10/10/24 08:00 Pulse Ox 98 10/10/24 08:00 FiO2 Intake & Output 10/09/24 10/10/24 10/10/24 18:59 06:59 18:59 Intake Total 540 1620 Output Total 1150 1700 525 Balance -610 -80 -525 Weight 94.5 kg Intake: Oral 540 1620 Output: Urine 1150 1700 525 Other: Voiding Method Indwelling Catheter Indwelling Catheter Indwelling Catheter - Exam Patient is awake, comfortable, no acute distress Examination of the heart S1 and S2 Examination of the lungs bilateral breath sounds are heard Abdomen is soft nontender Examination of lower extremities shows no significant edema, left big toe is swollen along with swelling in the left foot. 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 OLIVER due to postrenal obstruction, Renal ultrasound with bilateral hydronephrosis and enlarged prostate. Creatinine on admission 11. Last known creatinine 1.9 in 2021. Baseline unclear. Will continue IV fluids. UA with findings 2+ protein, large blood, RBCs > 182. Nolasco catheter placed. IV fluids . Urology following 2. Hematuria secondary to obstructive uropathy with possible UTI 3. Bilateral hydronephrosis, moderate to severe with markedly distended urinary bladder noted on ultrasound and AP CT 4. Pyuria rule out UTI, urine culture ordered 5. Hyponatremia, hypovolemic, improving with IV fluids 6. Anion gap metabolic acidosis, secondary to kidney injury, maintain on bicarb drip, improving 7. Anemia, iron saturation at 18%, status post IV iron x 1 and maintained on aranesp Plan: Continue with Nolasco catheter Continue aranesp Continue with normal saline Repeat labs in a.m.
--- NOTE | 2024-10-10 12:48 | XR ---
EXAMINATION TYPE: XR foot complete LT, XR ankle complete LT DATE OF EXAM: 10/10/2024 12:35 PM INDICATION: Patient age:Male; 64 years old; Reason for study: Left foot/ankle swelling discomfort; PHH. pain COMPARISON: None TECHNIQUE: The left foot was examined in the AP, oblique, and lateral projections. The left ankle was examined in AP, oblique, and lateral projections. FINDINGS: No evidence of any acute osseous pathology. Diffuse soft tissue swelling of the foot and ankle. No r adiopaque foreign bodies. Joints are preserved. No osseous erosions. Plantar calcaneal enthesophyte. Ankle mortise is intact. IMPRESSION: 1. No evidence of acute fracture. 2. Diffuse soft tissue swelling of the foot and ankle. [facility], , 10/10/2024 12:45 PM
--- NOTE | 2024-10-10 12:48 | P.PN ---
Subjective Progress Note Date: 10/10/24 Principal diagnosis: Hydronephrosis secondary to urinary retention The patient was admitted with renal failure and found to have bilateral hydronephrosis due to urinary retention. A Nolasco catheter was placed, and the urine remains bloody without clots. The serum creatinine level has decreased to 7.64. He has no specific complaints at this time. Objective - Vital Signs Vital signs: Vital Signs Temp 98.8 F 10/10/24 02:10 Pulse 73 10/10/24 02:10 Resp 16 10/10/24 02:10 BP 127/77 10/10/24 02:10 Pulse Ox 95 10/10/24 02:10 FiO2 Intake & Output 10/09/24 10/10/24 10/10/24 18:59 06:59 18:59 Intake Total 540 1620 Output Total 1150 1700 Balance -610 -80 Weight 94.5 kg Intake: Oral 540 1620 Output: Urine 1150 1700 Other: Voiding Method Indwelling Catheter Indwelling Catheter - Constitutional General appearance: Present: average body habitus, cooperative, no acute distress - Psychiatric Psychiatric: Present: A&O x's 3 - Labs CBC & Chem 7: 10/10/24 04:53 10/10/24 04:53 Labs: Abnormal Lab Results - Last 24 Hours (Table) 10/09/24 10/09/24 10/10/24 Range/Units 07:17 07:17 04:53 RBC 2.50 L 2.35 L (4.30-5.90) m/uL Hgb 8.0 L 7.6 L (13.0-17.5) gm/dL Hct 23.2 L 22.1 L (39.0-53.0) % Lymphocytes # 0.6 L 0.5 L (1.0-4.8) k/uL Sodium 133 L (137-145) mmol/L Carbon Dioxide (22-30) mmol/L BUN 82 H (9-20) mg/dL Creatinine 9.06 H* (0.66-1.25) mg/dL Glucose 128 H (74-99) mg/dL Calcium (8.4-10.2) mg/dL Phosphorus 6.5 H (2.5-4.5) mg/dL AST 13 L (17-59) U/L Total Protein 5.5 L (6.3-8.2) g/dL Albumin 3.1 L (3.5-5.0) g/dL 10/10/24 Range/Units 04:53 RBC (4.30-5.90) m/uL Hgb (13.0-17.5) gm/dL Hct (39.0-53.0) % Lymphocytes # (1.0-4.8) k/uL Sodium 133 L (137-145) mmol/L Carbon Dioxide 21 L (22-30) mmol/L BUN 68 H (9-20) mg/dL Creatinine 7.64 H* (0.66-1.25) mg/dL Glucose 106 H (74-99) mg/dL Calcium 8.3 L (8.4-10.2) mg/dL Phosphorus (2.5-4.5) mg/dL AST (17-59) U/L Total Protein (6.3-8.2) g/dL Albumin (3.5-5.0) g/dL Assessment and Plan (1) Urinary retention Current Visit: Yes Status: Acute Code(s): R33.9 - RETENTION OF URINE, UNSPECIFIED SNOMED Code(s): 697355058 (2) Unspecified hydronephrosis Current Visit: Yes Status: Acute Code(s): N13.30 - UNSPECIFIED HYDR ONEPHROSIS SNOMED Code(s): 61217094 Plan: -Continue Nolasco catheter drainage. -Continue to monitor renal function.
[2024-10-11 06:15] LABS: Basophils % (A) 0 %; Eosinophils # (A) 0.3 k/uL (0-0.7); Eosinophils % (A) 4 %; HCT 22.2 % (39.0-53.0); HGB 7.5 gm/dL (13.0-17.5); Lymphocytes # (A) 0.8 k/uL (1.0-4.8); Lymphocytes % (A) 11 %; MCH 32.1 pg (25.0-35.0); MCHC 33.8 g/dL (31.0-37.0); MCV 95.1 fL (80.0-100.0); Mean Platelet Volume 7.8; Monocytes # (A) 0.6 k/uL (0-1.0); Monocytes % (A) 8 %; Neutrophils # (A) 5.3 k/uL (1.3-7.7); Neutrophils % (A) 76 %; Platelet Count 255 k/uL (150-450); RBC 2.33 m/uL (4.30-5.90); RDW 13.1 % (11.5-15.5); WBC 7.1 k/uL (3.8-10.6)
[2024-10-11 06:39] LABS: African American GFR (CKD) 11 (>60 ml/min/1.73 sqM); Anion Gap 9 mmol/L; Blood Urea Nitrogen 55 mg/dL (9-20); Carbon Dioxide 21 mmol/L (22-30); Chloride 105 mmol/L (98-107); Glucose 96 mg/dL (74-99); Non-African American GFR(CKD) 10 (>60 ml/min/1.73 sqM); Sodium 135 mmol/L (137-145)
[2024-10-11] MEDS: HEPARIN SODIUM,PORCINE 5,000 UNIT/ML 1 ML VIAL SQ SCH (09:05)
--- NOTE | 2024-10-11 10:29 | P.PN ---
Subjective Progress Note Date: 10/11/24 Principal diagnosis: Hydronephrosis secondary to urinary retention The patient was admitted with renal failure and found to have bilateral hydronephrosis due to urinary retention. A Nolasco catheter was placed and the urine has cleared. The serum creatinine level has decreased to 5.55. He has no specific complaints at this time. Objective - Vital Signs Vital signs: Vital Signs Temp 98.5 F 10/11/24 07:18 Pulse 82 10/11/24 07:18 Resp 18 10/11/24 07:18 BP 148/71 10/11/24 07:18 Pulse Ox 98 10/11/24 07:18 FiO2 Intake & Output 10/10/24 10/11/24 10/11/24 18:59 06:59 18:59 Intake Total 2160 1100 Output Total 1075 2400 Balance 1085 -1300 Weight 94.5 kg Intake: Oral 2160 1100 Output: Urine 1075 2400 Other: Voiding Method Indwelling Catheter Indwelling Catheter - Constitutional General appearance: Present: average body habitus, cooperative, no acute distress - Psychiatric Psychiatric: Present: A&O x's 3 - Labs CBC & Chem 7: 10/11/24 05:08 10/11/24 05:08 Labs: Abnormal Lab Results - Last 24 Hours (Table) 10/11/24 10/11/24 Range/Units 05:08 05:08 RBC 2.33 L (4.30-5.90) m/uL Hgb 7.5 L (13.0-17.5) gm/dL Hct 22.2 L (39.0-53.0) % Lymphocytes # 0.8 L (1.0-4.8) k/uL Sodium 135 L (137-145) mmol/L Carbon Dioxide 21 L (22-30) mmol/L BUN 55 H (9-20) mg/dL Creatinine 5.55 H (0.66-1.25) mg/dL Calcium 8.0 L (8.4-10.2) mg/dL Microbiology - Last 24 Hours (Table) 10/09/24 05:00 Urine Culture - Final Urine,Catheterized Assessment and Plan (1) Urinary retention Current Visit: Yes Status: Acute Code(s): R33.9 - RETENTION OF URINE, UNSPECIFIED SNOMED Code(s): 951070689 (2) Unspecified hydronephrosis Current Visit: Yes Status: Acute Code(s): N13.30 - UNSPECIFIED HYDRONEPHROSIS SNOMED Code(s): 29860276 Plan: - Continue Nolasco catheter drainage. - Continue to monitor renal function. - Patient is urologically stable for discharge. - Arrangements will be made for patient to undergo urodynamic testing and cystoscopy as an outpatient.
--- NOTE | 2024-10-11 11:15 | P.PN ---
Subjective Progress Note Date: 10/11/24 64-year-old man with PMH of hypertension presents to the emergency department after dealing with gross hematuria for 10 days. Additionally, he notes some discomfort and difficulty with voiding. He notes when he first noticed discoloration of his urine he began taking some Ceftin at home, but stopped afte r a couple of days. He is a vague historian, however endorses history of hypertension for which he used to take losartan, however states he has not taken in "a while". He does not endorse taking any other home medications, or any other past medical history. He states he has never smoked. Does drink regularly, 12 vodka tonics daily per the patient. 10/09/24 - Patient seen and examined at bedside this morning, remaining in the ED. overnight he was noted to have some increasing back pain, which she believes is secondary to remaining in the ED on the stretcher. He was given Tylenol at that time. He remains on sodium bicarb at 100 cc/h. Urology recommendation to continue Nolasco catheter drainage, irrigation of the Nolasco as needed. Will likely require catheter for several weeks and will require urodynamic testing and cystoscopy as an outpatient. He currently has no acute complaints at this time. He was seen resting comfortably in his chair. Patient continues to have hematuria, with Nolasco catheter remaining in place. Today's creatinine improved to 9.06, with sodium improving to 133. D5W with sodium bicarb was transitioned to normal saline 100 cc/h and he was given Ferrlecit. He has no acute complaints at this time. 10/10/24 - Patient seen and examined at bedside this morning, up on the 5th floor. He was resting comfortably in his bed. Kidney function continues to show signs of improvement, this morning creatinine 7.64. He does continue have hematuria. Will continue on normal saline 100 cc/h, to continue drainage of the Nolasco catheter. Will continue to monitor his renal function. Only notable concern for the patient is some increased swelling and discomfort of his left foot/ankle. Follow-up imaging studies will be ordered, as well as uric acid to rule out any possibility of gout. 10/11/24 - Patient seen and examined at bedside this morning, remaining up on the 5th floor. He is resting comfortably in his chair. Kidney function continues to signs of improvement, this morning creatinine 5.55. On review of the urine from the Nolasco catheter, his hematuria has resolved. Will continue on normal saline 100 cc/h to continue drainage via the Nolasco catheter. Will continue to monitor his renal function. Left foot/ankle x-ray and venous Doppler ultrasound of left lower extremity ordered yesterday due to increased swelling noted of his left foot/ankle, all which came back negative. REVIEW OF SYSTEMS: Pertinent positives and negatives noted in HPI. Physical Exam: General: nontoxic, no distress, appears at stated age Derm: warm, dry, intact Head: atraumatic, normocephalic, symmetric Eyes: EOMI, anicteric sclera Mouth: no lip lesion, mucus membranes moist Cardiovascular: S1 S2 reg, no murmur, rubs, or gallops Lungs: CTA bilateral, no rales, no accessory muscle use Abdominal: soft, non-tender to palpataion, no appreciable organomegaly; ventral hernia noted Extremities: Edema and some tenderness to palpation of the left ankle/foot Neuro: Alert, Oriented, CNII-XII grossly intact, gait normal Psych: well appearing, appropriate affect Data Received Today: Labs: WBC 7.1, hemoglobin 7.5 hematocrit 22.2, platelet 255; sodium 135, potassium 4.0, bicarb 21, BUN 55, creatinine 5.55, calcium 8.0 Imagining: -Left foot/ankle x-ray showed no evidence of acute fracture with diffuse soft tissue swelling -Venous Doppler ultrasound left lower extremity showed no visualized DVT of left lower extremity Assessment and plan 59-year-old man with PMH of hypertension presents to the emergency department after dealing with gross hematuria for 10 days, some discomfort and difficulty with voiding and worsening kidney function. #Acute kidney injury, improving #Gross hematuria #Urinary retention #Hydronephrosis #Hyponatremia, improving #Hyperkalemia, resolved #Anion gap metabolic acidosis, resolved -Nolasco catheter remains in place -Continues with hematuria today (10/11/2024) -Continue on normal saline 100 cc/h -Urology note read and reviewed; will further patient follow-up with a specialist -Nephrology consult -Initiated on Aranesp 40 mcg subcu q. 7 days #Normocytic anemia, possibly dilutional -Hemoglobin 7.5 this morning -Continue monitor CBC -Hemoglobin <7 transfuse -Iron 41, TIBC 227, saturation 18.06, transferrin 162, ferritin 335 -Given Ferrlecit, 1 dose #New onset left foot/ankle swelling and pain -Uric acid 6.5 -Left foot/ankle x-ray report read and reviewed -Left lower extremity duplex venous ultrasound report read and reviewed DVT ppx: Heparin 5000 units SQ every 12 hours GI PPx: None Code status: Full code F: Normal saline 100 cc/h E: Replete as needed N: Renal diet A: Ambulatory Anticipated discharge place: Home Anticipated discharge time: Pending clinical course Dictation was produced using [employer] dictation software. please excuse any grammatical, word or spelling errors. I have seen and evaluated the patient today. Discussed with the resident and agree with the residents finding and plan as documented in the resident's note. Changes highlighted in blue font. Start Prednisone 40 mg PO QD x 5 days along with [place] 5 PRN for pain. Suspect gout even though uric acid is not elevated. Objective - Vital Signs Vital signs: Vital Signs Temp 98.5 F 10/11/24 07:18 Pulse 82 10/11/24 07:18 Resp 18 10/11/24 07:18 BP 148/71 10/11/24 07:18 Pulse Ox 98 10/11/24 07:18 FiO2 Intake & Output 10/10/24 10/11/24 10/11/24 18:59 06:59 18:59 Intake Total 2160 1100 Output Total 1075 2400 Balance 1085 -1300 Weight 94.5 kg Intake: Oral 2160 1100 Output: Urine 1075 2400 Other: Voiding Method Indwelling Catheter Indwelling Catheter - Labs CBC & Chem 7: 10/11/24 05:08 10/11/24 05:08 Labs: Abnormal Lab Results - Last 24 Hours (Table) 10/11/24 10/11/24 Range/Units 05:08 05:08 RBC 2.33 L (4.30-5.90) m/uL Hgb 7.5 L (13.0-17.5) gm/dL Hct 22.2 L (39.0-53.0) % Lymphocytes # 0.8 L (1.0-4.8) k/uL Sodium 135 L (137-145) mmol/L Carbon Dioxide 21 L (22-30) mmol/L BUN 55 H (9-20) mg/dL Creatinine 5.55 H (0.66-1.25) mg/dL Calcium 8.0 L (8.4-10.2) mg/dL Microbiology - Last 24 Hours (Table) 10/09/24 05:00 Urine Culture - Final Urine,Catheterized
--- NOTE | 2024-10-11 16:50 | P.PN ---
Subjective Patient is seen for follow-up for acute kidney injury secondary to obstructive uropathy, with bilateral hydronephrosis, currently with indwelling Nolasco catheter with improving renal function Serum creatinine has decreased to 5.5 mg/dL. Complaining of pain in the left big toe and the front of the foot. It appears quite swollen and tender. No previous history of gout. No history of trauma. Objective - Vital Signs Vital signs: Vital Signs Temp 98.5 F 10/11/24 12:30 Pulse 78 10/11/24 12:30 Resp 18 10/11/24 12:30 BP 134/74 10/11/24 12:30 Pulse Ox 98 10/11/24 12:30 FiO2 Intake & Output 10/10/24 10/11/24 10/11/24 18:59 06:59 18:59 Intake Total 2160 1100 Output Total 1075 2400 1900 Balance 1085 -1300 -1900 Weight 94.5 kg Intake: Oral 2160 1100 Output: Urine 1075 2400 1900 Other: Voiding Method Indwelling Catheter Indwelling Catheter Indwelling Catheter # Bowel Movements 1 - Exam Patient is awake, comfortable, no acute distress Examination of lower extremities shows no significant edema, left big toe is swollen along with swelling in the left foot. 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 OLIVER due to postrenal obstruction, Renal ultrasound with bilateral hydronephrosis and enlarged prostate. Creatinine on admission 11. Last known creatinine 1.9 in 2021. Baseline unclear. Will continue IV fluids. UA with 2+ protein, large blood, RBCs > 182. Nolasco catheter placed. IV fluids. Urology following 2. Hematuria secondary to obstructive uropathy with possible UTI 3. Bilateral hydronephrosis, moderate to severe with markedly distended urinary bladder noted on ultrasound and AP CT 4. Pyuria rule out UTI, urine culture ordered 5. Hyponatremia, hypovolemic, improving with IV fluids 6. Anion gap metabolic acidosis, secondary to kidney injury, maintain on bicarb drip, improving 7. Anemia, of chronic disease, iron saturation at 18%, status post IV iron x 1 and maintained on aranesp Plan: Continue with Nolasco catheter Continue aranesp Continue with normal saline Okay to take prednisone from nephrology standpoint. Stable for discharge from nephrology standpoint. Follow-up as outpatient in 1 to 2 weeks Repeat labs in a.m.
[2024-10-11] MEDS ORDERED: HYDROcodone/APAP 5-325MG 1 EACH TAB PO PRN (17:06)
[2024-10-11] MEDS: predniSONE 20 MG TAB PO SCH (17:24)
[2024-10-11 19:50] VITALS: RESP 14
[2024-10-12 05:57] LABS: Basophils % (A) 0 %; Eosinophils % (A) 0 %; HGB 7.7 gm/dL (13.0-17.5); Lymphocytes # (A) 0.3 k/uL (1.0-4.8); Lymphocytes % (A) 6 %; MCH 31.9 pg (25.0-35.0); MCHC 33.6 g/dL (31.0-37.0); MCV 94.8 fL (80.0-100.0); Mean Platelet Volume 8.2; Monocytes # (A) 0.2 k/uL (0-1.0); Monocytes % (A) 3 %; Neutrophils # (A) 5.1 k/uL (1.3-7.7); Neutrophils % (A) 91 %; Platelet Count 290 k/uL (150-450); RBC 2.42 m/uL (4.30-5.90); RDW 13.6 % (11.5-15.5); WBC 5.7 k/uL (3.8-10.6)
[2024-10-12 06:13] LABS: African American GFR (CKD) 14 (>60 ml/min/1.73 sqM); Anion Gap 9 mmol/L; Blood Urea Nitrogen 43 mg/dL (9-20); Calcium 8.6 mg/dL (8.4-10.2); Carbon Dioxide 21 mmol/L (22-30); Chloride 106 mmol/L (98-107); Glucose 147 mg/dL (74-99); Magnesium 1.6 mg/dL (1.6-2.3); Non-African American GFR(CKD) 12 (>60 ml/min/1.73 sqM); Phosphorus 3.9 mg/dL (2.5-4.5); Potassium 4.5 mmol/L (3.5-5.1); Sodium 136 mmol/L (137-145)
[2024-10-12 07:50] VITALS: BP 165/84; PULSE 69; TEMP 98
--- NOTE | 2024-10-12 11:06 | P.PN ---
Subjective Progress Note Date: 10/12/24 Principal diagnosis: Hydronephrosis secondary to urinary retention The patient was admitted with renal failure and found to have bilateral hydronephrosis due to urinary retention. A Nolasco catheter was placed and the urine has cleared. The serum creatinine level has decreased to 4.79. He has no specific complaints at this time. Objective - Vital Signs Vital signs: Vital Signs Temp 99.0 F 10/12/24 02:00 Pulse 71 10/12/24 02:00 Resp 14 10/12/24 02:00 BP 146/81 10/12/24 02:00 Pulse Ox 99 10/12/24 02:00 FiO2 Intake & Output 10/11/24 10/12/24 10/12/24 18:59 06:59 18:59 Intake Total 1080 Output Total 2650 4000 Balance -2650 -2920 Weight 95.9 kg Intake: Oral 1080 Output: Urine 2650 4000 Other: Voiding Method Indwelling Catheter Indwelling Catheter # Bowel Movements 1 - Constitutional General appearance: Present: average body habitus, cooperative, no acute distress - Labs CBC & Chem 7: 10/12/24 05:17 10/12/24 05:17 Labs: Abnormal Lab Results - Last 24 Hours (Table) 10/12/24 10/12/24 Range/Units 05:17 05:17 RBC 2.42 L (4.30-5.90) m/uL Hgb 7.7 L (13.0-17.5) gm/dL Hct 23.0 L (39.0-53.0) % Lymphocytes # 0.3 L (1.0-4.8) k/uL Sodium 136 L (137-145) mmol/L Carbon Dioxide 21 L (22-30) mmol/L BUN 43 H (9-20) mg/dL Creatinine 4.79 H (0.66-1.25) mg/dL Glucose 147 H (74-99) mg/dL Assessment and Plan (1) Urinary retention Current Visit: Yes Status: Acute Code(s): R33.9 - RETENTION OF URINE, UNSPECIFIED SNOMED Code(s): 169770203 (2) Unspecified hydronephrosis Current Visit: Yes Status: Acute Code(s): N13.30 - UNSPECIFIED HYDRONEPHROSIS SNOMED Code(s): 54334958 Plan: - Continue Nolasco catheter drainage. - Patient is urologically stable for discharge. - Arrangements will be made for patient to undergo urodynamic testing and cystoscopy as an outpatient.
--- NOTE | 2024-10-12 11:49 | P.PN ---
Subjective Patient is seen for follow-up for acute kidney injury secondary to obstructive uropathy, with bilateral hydronephrosis, currently with indwelling Nolasco catheter with improving renal function Serum creatinine has decreased to 4.7 mg/dL. Left foot pain is improved with steroids Objective - Vital Signs Vital signs: Vital Signs Temp 98.0 F 10/12/24 07:50 Pulse 69 10/12/24 08:35 Resp 14 10/12/24 08:35 BP 165/84 10/12/24 07:50 Pulse Ox 100 10/12/24 07:50 FiO2 Intake & Output 10/11/24 10/12/24 10/12/24 18:59 06:59 18:59 Intake Total 1080 240 Output Total 2650 4000 1300 Balance -2650 -2920 -1060 Weight 95.9 kg Intake: Oral 1080 240 Output: Urine 2650 4000 1300 Other: Voiding Method Indwelling Catheter Indwelling Catheter Indwelling Catheter # Bowel Movements 1 - Exam Patient is awake, comfortable, no acute distress Examination of lower extremities shows no significant edema, left big toe is swollen along with swelling in the left foot. BELL CAPTAIN exam grossly intact - Labs CBC & Chem 7: 10/12/24 05:17 10/12/24 05:17 Labs: Abnormal Lab Results - Last 24 Hours (Table) 10/12/24 10/12/24 Range/Units 05:17 05:17 RBC 2.42 L (4.30-5.90) m/uL Hgb 7.7 L (13.0-17.5) gm/dL Hct 23.0 L (39.0-53.0) % Lymphocytes # 0.3 L (1.0-4.8) k/uL Sodium 136 L (137-145) mmol/L Carbon Dioxide 21 L (22-30) mmol/L BUN 43 H (9-20) mg/dL Creatinine 4.79 H (0.66-1.25) mg/dL Glucose 147 H (74-99) mg/dL Assessment and Plan Assessment: 1. OLIVER due to postrenal obstruction, Renal ultrasound with bilateral hyd ronephrosis and enlarged prostate. Creatinine on admission 11. Last known creatinine 1.9 in 2021. Baseline unclear. UA with 2+ protein, large blood, RBCs > 182. Nolasco catheter placed. IV fluids. Urology following 2. Hematuria secondary to obstructive uropathy with possible UTI 3. Bilateral hydronephrosis, moderate to severe with markedly distended urinary bladder noted on ultrasound and AP CT 4. Pyuria rule out UTI, urine culture ordered 5. Hyponatremia, hypovolemic, improving with IV fluids 6. Anion gap metabolic acidosis, secondary to kidney injury, maintain on bicarb drip, improving 7. Anemia, of chronic disease, iron saturation at 18%, status post IV iron x 1 and maintained on aranesp Plan: Continue with Nolasco catheter Continue aranesp Okay to take prednisone from nephrology standpoint. Stable for discharge from nephrology standpoint. Follow-up as outpatient in 1 to 2 weeks
--- NOTE | 2024-10-12 13:27 | P.DS ---
Providers Date of admission: 10/08/24 01:13 Expected date of discharge: 10/12/24 Attending physician: Devyn Mcmahan MD Consults: 10/08/24 01:13 Consult Physician Routine Consulting Provider: Blake Choi Consult Reason/Comments: hematuria Do you want consulting provider notified?: Yes Consult Physician Routine Consulting Provider: Herminia Zambrano Consult Reason/Comments: marcio Do you want consulting provider notified?: Yes Primary care physician: Stated None Hospital Course: 64 year old M with PMH of HTN presented to the ED for hematuria with difficulty urinating. In the ED he underwent extensive evaluation. Blood pressure 179/100, heart rate 96, respiratory rate 16, SpO2 97% on room air. WBCs 9.2, hemoglobin 10.3, hematocrit 29.9, platelet 322; sodium 124, potassium 5.3, chloride 94, bicarb 10, BUN 101, creatinine 11.08. UA: 2+ protein, large amount of blood, 1+ bilirubin, trace leukocyte esterase, > 182 urine RBCs, 98 urine WBCs. Renal/bladder ultrasound showed distended urinary bladder with debris/abnormal urinary contour to the inferior bladder. CT abdomen/pelvis shows markedly distended urinary bladder with bilateral hydronephrosis; debris within the ur inary bladder which could represent blood products. Urology and Nephrology consulted. Nolasco catheter inserted and started on IVF. Renal function slowly improved and Cr was 4.79 on the day of discharge. Hematuria resolved. 10/12 Patient was seen and examined. He reports considerable improvement in his L foot pain after starting Prednisone. Cleared by Urology and Nephrology. Plans for discharge home today. CBC and BMP significant for RBC 2.42, Hg 7.7, Hct 23, Na 136, bicarb 21, BUN 43, Cr 4.79, glu 147. Mag 1.6. Discharge Plan: Follow up with PCP within 1-2 days of discharge. Repeat BMP in 3 days to be followed up with PCP and Dr. Zambrano. Follow up with Urology and Nephrology within 1 week of discharge. Prescription for Prednisone x 3 days, ferrous sulfate sent to pharmacy. General: non toxic, no distress, appears at stated age Derm: warm, dry Head: atraumatic, normocephalic, symmetric Eyes: EOMI, no lid lag, anicteric sclera Mouth: no lip lesion, mucus membranes moist Cardiovascular: S1S2 reg, no murmur Lungs: CTA bilateral, no rhonchi, no rales , no accessory muscle use Abdominal: soft, nontender to palpation, no guarding, no appreciable organomegaly Ext: no gross muscle atrophy, no edema, no contractures Neuro: no focal neuro deficits Psych: Alert, oriented, appropriate affect Discharge Diagnosis: Acute kidney injury Gross hematuria Urinary retention Hydronephrosis Hyponatremia Hyperkalemia Anion gap metabolic acidosis Normocytic anemia Gout This complex discharge took 35 minutes to complete. Patient Condition at Discharge: Stable Plan - Discharge Summary Discharge Rx Participant: No New Discharge Prescriptions: New predniSONE [Deltasone] 40 mg PO DAILY #6 tab Ferrous Sulfate [Feosol] 325 mg PO BID #60 tab Acetaminophen Tab [Tylenol] 650 mg PO Q6HR PRN tab PRN Reason: Fever And/ Or Pain Discharge Medication List Acetaminophen Tab [Tylenol] 650 mg PO Q6HR PRN tab 10/12/24 [Rx] Ferrous Sulfate [Feosol] 325 mg PO BID #60 tab 10/12/24 [Rx] predniSONE [Deltasone] 40 mg PO DAILY #6 tab 10/12/24 [Rx] Follow up Appointment(s)/Referral(s): Herminia Zambrano MD [STAFF PHYSICIAN] - 1 Week Blake Choi MD [STAFF PHYSICIAN] - 1 Week None,Stated [Primary Care Provider] - 1-2 days Patient Instructions/Handouts: Acute Kidney Injury (DC), Acute Kidney Injury (GEN) Activity/Diet/Wound Care/Special Instructions: Diet: Renal Repeat BMP in 3 days results to be followed up with PCP and Dr. Zambrano. Discharge home with Nolasco catheter to leg bag, and provide patient with an overnight urinary drainage bag as well. Patient will be contacted by Dr. Choi' office to schedule outpatient urodynamic testing and cystoscopy. Discharge Disposition: HOME SELF-CARE
== END 2024-10-12 14:48 | disposition home or self-care (01) | DRG 699 ==
LOC: EC 20:53 → 3SCARD 10-08 01:13 → 5NMEDONC 10-09 10:38
PROVIDERS: ADMIT Internal Medicine; ATTEND Internal Medicine
PROC: 0T9B70Z Drainage of Bladder with Drainage Device, Via Natural or Artificial Opening (ICD-10-PCS; principal; 2024-10-08)
DX: N13.9 Obstructive and reflux uropathy, unspecified (principal); E87.1 Hypo-osmolality and hyponatremia; E87.20 Acidosis, unspecified; N17.9 Acute kidney failure, unspecified; D63.8 Anemia in other chronic diseases classified elsewhere; E86.1 Hypovolemia; I10 Essential (primary) hypertension; N13.30 Unspecified hydronephrosis; R31.0 Gross hematuria; E87.5 Hyperkalemia; M10.9 Gout, unspecified; R82.81 Pyuria; N32.89 Other specified disorders of bladder
CPT/HCPCS: 36415; 51702; 74176; 76770; 80048; 80053; 81001; 82550; 82728; 83540; 83550; 83735; 84100; 84550; 85025; 87086; 96365; 96366; 96367; 96372; 96375; 96376; 99285

== ENCOUNTER → 2024-10-17 | Outpatient (CLI) | payer MEDICARE, OTHER ==
[2024-10-17 16:54] LABS: BUN/Creat Ratio 15.53 Ratio (12.00-20.00); Blood Urea Nitrogen 55.9 mg/dL (9.0-27.0); Carbon Dioxide 24.9 mmol/L (21.6-31.8); Chloride 96 mmol/L (96-109); Glucose 112 mg/dL (70-110); Sodium 134 mmol/L (135-145)
== END | disposition home or self-care (01) ==
LOC: LABWHC1 11:57
PROVIDERS: ATTEND Internal Medicine Nephrology
DX: Z53.9 Procedure and treatment not carried out, unspecified reason (principal)
CPT/HCPCS: 36415; 80048

== ENCOUNTER → 2025-02-15 | Outpatient (CLI) | payer MEDICARE, OTHER ==
--- NOTE | 2025-02-15 09:19 | MR ---
EXAMINATION TYPE: MR Prostate wo/w con DATE OF EXAM: 02/15/2025 8:57 AM COMPARISON: None. CLINICAL INDICATION: Male, 64 years old with history of R97.20 ELEVATED PROSTATE SPECIFIC ANTIGEN [PS A]; Elevated PSA TECHNIQUE: Multi-planar, multi-sequence imaging of the pelvis is performed prior to and following the uncomplicated administration of bolus intravenous gadolinium. IV Contrast: 8.5 mL Gadobutrol Interpretive Criteria: PI-RADS v2.1 SERUM PSA: PSA 8.10 10-03-2021 PSA 12.23 11-05-2024 PSA 12.10 12-09-2024 SURGICAL PATHOLOGY: No data available. FINDINGS: Prostatic dimensions: 6.9 x 9.5 x 5.6 cm. Ellipsoid Volume:192.20 (PSA density=0.06 ng/mL/m CENTRAL GLAND (Central and Transition Zones/CZ+TZ): Multiple bilateral, heterogenous appearing hypertrophic stromal nodules, without suspicious lesion. M edian lobe hypertrophy with protrusion into the base of the bladder. (PI-RADS 2) PERIPHERAL ZONE (PZ): Thickened peripheral zone from central gland hypertrophy. No evidence of masslike abnormality, or loc alized perfusional hypervascularity, to further suggest a focus of clinically significant prostate ca ncer. (PI-RADS 2) SEMINAL VESICLES (SV): Symmetric and unremarkable. PERIPROSTATIC TISSUES: Unremarkable. LYMPH NODES: No enlarged pelvic lymph node. REMAINING PELVIS: Trabeculated bladder wall likely secondary to chronic bladder outlet obstruction. No abnormal free or organized intrapelvic fluid collection. No pathologic bowel dilation or mural thickening. No hernia visualized OSSEOUS STRUCTURES: No suspicious osseous abnormality. IMPRESSION: 1. No specific features for high-risk prostate cancer. Maximum PI-RADS score: 2. 2. Substantial BPH, estimated gland volume 192.20 (PSA density=0.06 ng/mL/m 3. No suspicious osseous lesion. No lymphadenopathy. No evidence of prostate adenocarcinoma involving the periprostatic tissues. 4. Evidence of chronic bladder outlet obstruction. [facility], , 02/15/2025 9:16 AM
== END | disposition home or self-care (01) ==
LOC: RADMRIMAIN 01-16 08:01
PROVIDERS: ATTEND Urology
DX: N40.0 Benign prostatic hyperplasia without lower urinary tract symptoms (principal); R97.20 Elevated prostate specific antigen [PSA]
CPT/HCPCS: 72197; A9585